=== PATIENT | male | born 1980 | race Caucasian/White ===

== ENCOUNTER → 2022-11-13 | Outpatient (CLI) | payer OTHER ==
--- NOTE | 2022-11-14 12:36 | CT ---
EXAMINATION TYPE: CT abdomen pelvis wo/w con CT DLP: 2610 mGycm, Automated exposure control for dose reduction was used. DATE OF EXAM: 11/13/2022 7:12 PM COMPARISON: None CLINICAL INDICATION:Male, 41 years old with history of R10.30; lower abdominal pain TECHNIQUE: Axial CT of the abdomen and pelvis. Sagittal and coronal reformats were created on a [email or web address] workstation. Contrast used:100 cc mL of Isovue 300 with IV Contrast, Oral contrast used: with Oral Contrast FINDINGS: LOWER CHEST: Unremarkable ABDOMEN LIVER: Diffusely hypoattenuating parenchyma. GALLBLADDER AND BILE DUCTS: Unremarkable. PANCREAS: Unremarkable. SPLEEN: Unremarkable. ADRENAL GLANDS: Unremarkable. KIDNEYS AND URETERS: No evidence of hydronephrosis or renal calculus. The ureters are unremarkable. PELVIS BLADDER: Unremarkable REPRODUCTIVE: Unremarkable. ABDOMEN & PELVIS STOMACH AND BOWEL: No evidence of bowel obstruction. Small hiatal hernia. The appendix is not definit ively visualized. PERITONEUM/RETROPERITONEUM: No evidence of pneumoperitoneum or free fluid. VASCULATURE: No evidence of aortic aneurysm. MUSCULOSKELETAL: No acute osseous abnormalities LYMPH NODES: No gross evidence for lymphadenopathy. SOFT TISSUE/ABDOMINAL WALL: Unremarkable IMPRESSION: 1. No evidence for acute intra-abdominal process. 2. Hepatic steatosis. 3. Small hiatal hernia. 4. Small fat-containing umbilical hernia.
== END | disposition home or self-care (01) ==
LOC: RADCTMAIN 17:17
PROVIDERS: ATTEND Surgery
DX: K76.0 Fatty (change of) liver, not elsewhere classified (principal); K44.9 Diaphragmatic hernia without obstruction or gangrene; K42.9 Umbilical hernia without obstruction or gangrene; R10.30 Lower abdominal pain, unspecified
CPT/HCPCS: 74178; Q9967

== ENCOUNTER 2022-12-06 09:37 | Day surgery (SDC) | payer OTHER ==
[2022-12-04 10:04] VITALS: BMI 46.5
[~2022-12-06 09:37] MED LIST: LACTATED RINGERS 1,000 ML IV SCH
[2022-12-06 10:03] VITALS: TEMP 97.1
[2022-12-06] MEDS ORDERED: fentaNYL (PF) 50 MCG/ML 2 ML AMP ONE (10:32)
[2022-12-06] MEDS ORDERED: PROPOFOL 10 MG/ML 20 ML VIAL IV ONE (10:32)
[2022-12-06] MEDS ORDERED: LIDOCAINE 2% INJ 20 MG/ML (2 ML VIAL) ONE (10:32)
[2022-12-06] MEDS ORDERED: MIDAZOLAM 2 MG/2 ML VIAL ONE (10:32)
--- NOTE | 2022-12-06 10:44 | P.PCN ---
Date of Procedure: 12/06/22 Procedure(s) Performed: BRIEF HISTORY: Patient is a 42-year-old, pleasant, white female scheduled for an upper endoscopy as a part of evaluation of lungs any history of GERD. He is presently on lansoprazole 15 mg daily. PROCEDURE PERFORMED: Esophagogastroduodenoscopy with biopsy. PREOPERATIVE DIAGNOSIS: Long standing history of GERD. IV sedation per anesthesia. PROCEDURE: After informed consent was obtained, the patient was brought into the endoscopy unit. IV sedation was administered by Anesthesia under continuous monitoring. Initially the Olympus GIF-140 video endoscope was inserted into the mouth. Esophagus intubated without any difficulty. It was gradually advanced into the stomach and duodenum and carefully examined. The bulb and the second part of the duodenum appeared normal. The scope at this time was withdrawn to the stomach, adequately insufflated with air, and upon careful examination, mucosa of the antrum, had mild gastritis and biopsies were done from this area. Mucosa of the body, cardia and the fundus appeared normal. The scope was then withdrawn into the esophagus. Small hiatal hernia noted. The GE junction was located at 39 cm from the incisors. There was a 3 mm island of Clay's appearing mucosa just proximal to the GE junction which was biopsied. There were linear erosions in the distal esophagus consistent with LA grade B reflux esophagitis. The rest of esophagus appeared normal and the patient tolerated the procedure well. IMPRESSION: 1. Linear erosions in the distal esophagus consistent with LA grade B reflux esophagitis. 2. Small hiatal hernia and short segment Clay's esophagus. 2. Mild antral gastritis RECOMMENDATIONS: The findings of this examination were discussed with the patient as well as his family. He was advised to increase the lansoprazole 30 mg daily and follow antireflux measures. If the biopsy confirms the presence of Clay's esophagus he can have a repeat upper endoscopy in 3 years. He was briefly educated about diet modification..
[2022-12-06 10:55] VITALS: RESP 16
[2022-12-06 11:15] VITALS: BP 110/76; PULSE 88
== END 2022-12-06 11:45 | disposition home or self-care (01) ==
LOC: ORWHC2ENDO 09:37
PROVIDERS: ATTEND Internal Medicine Gastroenterology
DX: K29.50 Unspecified chronic gastritis without bleeding (principal); K21.00 Gastro-esophageal reflux disease with esophagitis, without bleeding; K44.9 Diaphragmatic hernia without obstruction or gangrene; K22.70 Barrett's esophagus without dysplasia; Z91.040 Latex allergy status; Z79.899 Other long term (current) drug therapy
CPT/HCPCS: 43239; J2250; J3010; J2704; J2001; 88305

== ENCOUNTER → 2023-10-17 | Outpatient (CLI) | payer OTHER ==
--- NOTE | 2023-10-17 20:50 | CT ---
EXAMINATION TYPE: CT sinus wo con CT DLP: 648 mGycm, Automated exposure control for dose reduction was used. DATE OF EXAM: 10/17/2023 5:24 PM COMPARISON: None CLINICAL INDICATION:Male, 42 years old with history of J32.0 CHRONIC MAXILLARY SINUSITIS; , Chronic s inusitis x 25-30 years. States that he broke his nose x 30 years ago and has had pain since. TECHNIQUE: Multiple thin axial images were obtained through the paranasal sinuses without the use of IV contrast. Additional coronal and sagittal reformatted images were submitted for evaluation. Contrast used: none Oral contrast used: none FINDINGS: Frontal sinuses: Normally developed with mucosal thickening. Frontal Recess: Opacified Maxillary Sinuses: Normally developed with mild mucosal thickening. Maxillary Infundibula([facility]): Clear, No Zoltan cells identified. Ethmoid sinuses: Normally developed with mild mucosal thickening.. Ethmoidal notch: Protected and abu tting the lateral lamina. Sphenoid sinuses: Normally developed with mild mucosal thickening. There is sellar sphenoid sinus pne umatization without evidence of dehiscence. No dehiscence of carotid canal. No evidence of optic ner ve dehiscence within the sphenoid sinus. No evidence of Onodi cells. Sphenoethmoidal recesses: Clear . Nasal septum: Within normal limits.. Nasal Turbinates: Within normal limits. Mastoid air cells & middle ears: The air cells are clear. The middle ears are grossly unremarkable. Modified Soft tissues & Brain: Partially seen without gross abnormality. Globes are intact. Other: Cribriform plate demonstrates symmetric Keros classification type 3 cribriform plate. No evidence of bony dehiscence of skull base. Lamina papyracea is intact without evidence of remote orbital fracture or orbital prolapse into the e thmoid sinus. IMPRESSION: 1. Mild to moderate mucosal sinus disease. 2. The ostiomeatal units are patent, the frontonasal recesses are opacified and sphenoethmoidal reces ses are clear.
== END | disposition home or self-care (01) ==
LOC: RADCTMAIN 17:08
PROVIDERS: ATTEND Otolaryngology
DX: J32.0 Chronic maxillary sinusitis (principal); J34.89 Other specified disorders of nose and nasal sinuses
CPT/HCPCS: 70486

== ENCOUNTER 2023-11-21 07:19 | Day surgery (SDC) | payer OTHER ==
[2023-11-16 13:43] VITALS: BMI 31.1
[~2023-11-21 07:19] MED LIST changes: +HYDROmorphone 0.5 MG/0.5 ML SYRINGE IVP PRN; -LACTATED RINGERS 1,000 ML IV SCH; +LIDOCAINE 1% (10MG/ML) FOR IV START INTRADERMA PRN; +MIDAZOLAM 2 MG/2 ML VIAL IV PRN
[2023-11-21] MEDS: LACTATED RINGERS 1,000 ML IV SCH (07:58)
[2023-11-21] MEDS: OXYMETAZOLINE 0.05% NASL SPRAY 1 SPRAY BOTTLE EA NOSTRIL PRN (08:03)
[2023-11-21] MEDS: DEXAMETHASONE SOD PHOSPHATE 4 MG/ML 1 ML VIAL IV ONE (08:21)
[2023-11-21] MEDS: ONDANSETRON 4 MG/2 ML VIAL IVP ONE (08:21)
[2023-11-21] MEDS: FAMOTIDINE 20 MG/2 ML VIAL IV PRN (08:21)
[2023-11-21] MEDS ORDERED: LIDOCAINE 1% INJ 10MG/ML (20 ML MDV) ONE (08:25)
[2023-11-21] MEDS ORDERED: fentaNYL (PF) 50 MCG/ML 2 ML AMP ONE (08:25)
[2023-11-21] MEDS ORDERED: KETOROLAC 15 MG/ML 1 ML VIAL ONE (08:25)
[2023-11-21] MEDS ORDERED: ROCURONIUM 10 MG/ML (5 ML VIAL) IV ONE (08:25)
[2023-11-21] MEDS ORDERED: PROPOFOL 10 MG/ML 20 ML VIAL IV ONE (08:25)
[2023-11-21] MEDS ORDERED: NEOSTIGMINE 1 MG/ML 10 ML VIAL ONE (08:25)
[2023-11-21] MEDS ORDERED: MIDAZOLAM 2 MG/2 ML VIAL ONE (08:25)
[2023-11-21] MEDS ORDERED: GLYCOPYRROLATE 0.2 MG/ML 2 ML VIAL ONE (08:25)
[2023-11-21] MEDS ORDERED: SUCCINYLCHOLINE CHLORIDE 200 MG/10 ML VIAL IV ONE (08:25)
[2023-11-21] MEDS: LIDOCAINE 1%-EPI 1:100,000 50 ML VIAL SUBMUCOSAL ONE ×3 (08:40→08:47)
[2023-11-21] MEDS: BACITRACIN ZINC 500 UNIT/GM OINT 28.4 GM TUBE TOPICAL ONE (09:24)
--- NOTE | 2023-11-21 09:41 | P.OP ---
Date of Procedure: 11/21/23 Preoperative Diagnosis: Deviated nasal septum Inferior turbinate hypertrophy Chronic sinusitis Postoperative Diagnosis: Same Procedure(s) Performed: Septoplasty Outfracture and submucous resection inferior turbinates Bilateral endoscopic sinus surgery including bilateral maxillary antrostomy with removal of tissue maxillary sinuses bilateral anterior and posterior ethmoidectomy with frontal sinus exploration and removal of tissue from the frontal sinuses Anesthesia: MONICA Surgeon: Nicholas Aguilar Estimated Blood Loss (ml): 10 Pathology: other (Nasal septal bone and cartilage and sinus contents) Condition: stable Disposition: PACU Indications for Procedure: This is a 43-year-old white male who has had difficulties with chronic nasal airway obstruction and congestion as well as chronic postnasal drainage and recurrent/chronic sinusitis. CT showed evidence of mucosal thickening in the maxillary ethmoid frontal sinuses as well as minimally of the sphenoid sinuses- his insurance would not authorize the sphenoid sinus procedure and therefore this was deferred in the patient does understand this and was in agreement with this portion of the procedure Operative Findings: Nasal septum deviated to the right with inferior turbinate hypertrophy, sca ttered mucosal thickening throughout the ethmoid sinuses with frontal sinus inflammation and small polyps removed with obstruction of the ostiomeatal units bilaterally and small cysts in the maxillary sinuses removed Description of Procedure: The patient was brought into the operative suite and placed in a supine position. The patient underwent induction of general anesthesia with oral endotracheal intubation without difficulty. The patient was prepped and draped in the usual aseptic fashion with the orbits in the operating field for monitoring to the case and the computed tomography scan was on the computer screen for review throughout the case. 1% lidocaine with 1 :100,000 epinephrine was infused submucosally into both sides of the nasal septum as well as the lateral nasal wall and anterior tips of the middle turbinates. While this was taking vasoconstrictive effect the inferior turbinates were infractured with Brooke elevator and partial submucous resection of the inferior turbinates was performed with a portion of the submucosal soft tissue and the inferior turbinate bone removed with Coblation device. The inferior turbinates were then outfractured with the Brooke elevator. A left hemitransfixion incision was then made with the mucoperichondrial and mucoperiosteal flap on the left elevated. The bony cartilaginous junction was disarticulated and the mucoperiosteal flap on the right was elevated. Bony nasal septal deformities were removed with Braxton forceps and an inferior cartilaginous strip was removed leaving a full 1.5 cm caudal strut. Checking intranasally this corrected the nasoseptal deformities and the hemitransfixion incision was closed with a running 4-0 chromic suture. Full 0 endoscopic examination is performed bilaterally. Beginning on the left, the middle turbinate was medialized. The maxillary ostium was located with a ballpoint probe and an infundibulotomy was performed followed by uncinectomy. The maxillary antrostomy was enlarged at the expense of the anterior and posterior fontanelle taking care anteriorly not to injure the lacrimal bone. The maxillary sinus was evaluated with 30 and 70 endoscope .[A bnormal appearing tissue was removed from the maxillary sinus]. Anterior and posterior ethmoidectomy were then performed from anterior to posterior to the level of the skull base. The roof of the anterior ethmoid air cells were then cleaned from posterior to anterior using up-biting Blakesley forceps. A frontal sinusotomy was performed under 30 endoscopic examination with a ballpoint probe, giraffe forceps. The frontal sinus was then explored with 30 endoscope.[Abnormal tissue was removed from the frontal sinus]. Attention was then turned to the right where the procedures were followed as they had been on the left including medialization middle turbinate infundibulotomy uncinectomy maxillary antrostomy with removal of tissue maxillary sinuses anterior posterior ethmoidectomy and frontal sinusotomy with exploration [Nasopore nasal dressing was placed in the middle meatus bilaterally under direct visualization]. Bilateral Nogueira airway splints coated with bacitracin ointment were placed and sutured transseptally with a 4-0 nylon suture. The patient was suctioned in oral gastric fashion and was allowed to emerge from general anesthesia having tolerated procedure well and was extubated in the operating suite and transferred to the postoperative recovery area in satisfactory condition.
[2023-11-21] MEDS: LACTATED RINGERS 1,000 ML IV ONE (09:43)
[2023-11-21 10:19] VITALS: TEMP 97.2
[2023-11-21 12:10] VITALS: RESP 16
[2023-11-21] MEDS ORDERED: HYDROcodone/APAP 5-325MG 1 EACH TAB ONE (13:14)
[2023-11-21] MEDS: HYDROcodone/APAP 5-325MG 1 EACH TAB PO ONE (13:19)
[2023-11-21 13:25] VITALS: BP 129/87; PULSE 85
== END 2023-11-21 14:41 | disposition home or self-care (01) ==
LOC: OR 07:19
PROVIDERS: ATTEND Otolaryngology
DX: J34.2 Deviated nasal septum (principal); J34.3 Hypertrophy of nasal turbinates; J32.8 Other chronic sinusitis; J33.8 Other polyp of sinus; J34.1 Cyst and mucocele of nose and nasal sinus; J30.89 Other allergic rhinitis; J45.20 Mild intermittent asthma, uncomplicated; E66.9 Obesity, unspecified; Z68.30 Body mass index [BMI] 30.0-30.9, adult; G47.33 Obstructive sleep apnea (adult) (pediatric); K21.9 Gastro-esophageal reflux disease without esophagitis; G43.909 Migraine, unspecified, not intractable, without status migrainosus; F90.9 Attention-deficit hyperactivity disorder, unspecified type; F41.8 Other specified anxiety disorders; Z88.8 Allergy status to other drugs, medicaments and biological substances; Z91.040 Latex allergy status; Z79.899 Other long term (current) drug therapy; Z87.891 Personal history of nicotine dependence
CPT/HCPCS: 30520; 30140; 31267; 31253; J2250; J0330; J1100; J2710; J0690; J2405; J2001; J3010; J3490; J1885; J2704; 88300; 88305